=== PATIENT | female | born 1955 | race African-American/Black ===

== ENCOUNTER 2020-02-04 17:49 | Emergency (ER) | payer OTHER ==
[~2020-02-04] VITALS: Ht 170.2 cm; Wt 104.3 kg
--- NOTE | ~2020-02-04 | EKG ---
[facility] [place] [address] ELECTROCARDIOGRAM REPORT Name: RAHUL MOORE Room #: REG [facility]#: [id number] Admission: 02/04/20 Attend Phys: Discharge: Date of : 57 Report #: [id number] THIS REPORT FOR: cc: Vandana Duque MD, Ramilo MD Epiphany, Epiphany MD ~ THIS REPORT FOR: //name// Default Test Date: 2020-02-04 Test Time: 18:54:05 Pat Name: RAHUL MOORE Department: Room: Gender: F Insurance Claim Representative: Rodrick : 1955 Requested By: Kwabena Cartagena Order Number: [id number] MD: Measurements Intervals [place] Rate: 71 P: 66 [place]: 139 QRS: 44 QRSD: 97 T: 40 QT: 422 QTc: 459 Interpretive Statements Sinus rhythm Probable left atrial enlargement Borderline ST elevation, anterior leads Baseline wander in lead(s) V2,V6 Compared to ECG 08/08/2006 16:05:01 ST (T wave) deviation now present [email or web address] By: 1854 1854 Epiphany Epiphany, /EPI
--- NOTE | ~2020-02-04 | EMS ---
[address] [address] EMS Patient Care Report Name: RAHUL MOORE Room #: PRE MHarlan#: [id number] Admission: Attend Phys: Discharge: Date of : 57 Report #: [id number] THIS REPORT FOR: //name// Report Transmitted: 02/04/2020 17:30 EMS Care Summary [place], [place]/[facility] Incident [id number] @ 02/04/2020 17:17 Incident Location [address] Patient RAHUL MOORE Female, 64 Years 1955 Patient Address [address] [place] [address] Patient History Asthma,Diabetes,Hypertension (HTN),Stroke/CVA,Hyperlipidemia,Depression,Pancreatitis,Chronic Pain,Constipation,Insomnia, Patient Allergies Penicillin allergy, Patient Medications Lidocaine, Acetaminophen, Oxycodone, Trazodone, Albuterol, Gabapentin, Pantoprazole, Losartan, Depakote, Hydrochlorothiazide (Hctz), Aspirin, Atorvastatin, Sertraline, Chief Complaint ALTERED MENTAL STATUS Disposition Transported No Lights/Fosters Dispatch Reason Sick Person Transported To [address] [address] EMS Patient Care Report Name: RAHUL MOORE Room #: PRE TIFFANY Parkinson#: [id number] Admission: Attend Phys: Discharge: Date of : 57 Report #: [id number] Narrative SCENE: ON ARRIVSL PT FOUND SITTING UPRGHT IN WHEELCHAIR IN ROOM AT ADDRESS PROVIDED. P IS AWAKE AND ALERT WITH A GCS OF 14. STAFF REPORTS PT HAS HAD AN ALTERED MENTATION FOR THE LAST TWO WEEKS. PT IS NORMALLY A&OX3. PT ABLE TO STAND AND SIT ON EMS STRETCHER. PT ANSWERS ALL QUESTIONS WITH "I DON'T KNOW. AMBULANCE: VITALS MONITORED THROUGHOUT TRANSPORT. NO CHANGES IN PT STATUS EN ROUTE Initial Vitals @17:39P: 76,R: 20,BP: 142/104,Pain: 0/10,GCS: 14,Glucose: 232,Revised Trauma: 12, @17:41P: 82,R: 18,BP: 173/94,Pain: 0/10,GCS: 14,Revised Trauma: 12, @17:31P: 74,R: 18,Pain: 0/10,GCS: 14,Revised Trauma: 12, Assessments @17:33MENTAL:Confused,Person Oriented,SKIN:No Abnormalities,HEENT:Head/Face: No Abnormalities,Eyes: No Abnormalities,Neck/Airway: No Abnormalities,LUNG SOUNDS:General: No Abnormalities,Left Upper: No Abnormalities,Right Upper: No Abnormalities,Left Lower: No Abnormalities,Right Lower: No Abnormalities,ABDOMEN:General: No Abnormalities,Left Upper: No Abnormalities,Right Upper: No Abnormalities,Left Lower: No Abnormalities,Right Lower: No Abnormalities,PELVIS//GI:No Abnormalities,EXTREMITIES:Left Arm: No Abnormalities,Right Arm: No Abnormalities,Left Leg: No Abnormalities,Right Leg: No Abnormalities,PULSE:NEURO:No Abnormalities,@17:45MENTAL:Confused,Person Oriented,SKIN:No Abnormalities,HEENT:Head/Face: No Abnormalities,Eyes: No Abnormalities,Neck/Airway: No Abnormalities,LUNG SOUNDS:General: No Abnormalities,Left Upper: No Abnormalities,Right Upper: No Abnormalities,Left Lower: No Abnormalities,Right Lower: No Abnormalities,ABDOMEN:General: No Abnormalities,Left Upper: No Abnormalities,Right Upper: No Abnormalities,Left Lower: No Abnormalities,Right Lower: No Abnormalities,PELVIS//GI:No Abnormalities,EXTREMITIES:Left Arm: No Abnormalities,Right Arm: No Abnormalities,Left Leg: No Abnormalities,Right Leg: No Abnormalities,PULSE:NEURO:No Abnormalities, Impression Altered Mental Status Procedures @17:34StretcherResponse: Unchanged@17:31ALS AssessmentResponse: UnchangedSucceeded Timeline 17:16,Call Received 17:16,Dispatch Notified 17:17,Dispatched [address] [address] EMS Patient Care Report Name: RAHUL MOORE Room #: PRE ER M.R.#: [id number] Admission: Attend Phys: Discharge: Date of : 57 Report #: [id number] 17:19,En Route 17:26,On Scene 17:31,At Patient 17:31,BP: 164/ M,PULSE: 74,RR: 18 R,SPO2: Ox,ETCO2: ,BG: ,PAIN: 0,GCS: 14, 17:31,ALS Assessment,Response: UnchangedSucceeded, 17:34,Stretcher,Response: Unchanged 17:39,BP: 142/104 M,PULSE: 76,RR: 20 R,SPO2: Ox,ETCO2: ,B,PAIN: 0,GCS: 14, 17:41,BP: 173/94 M,PULSE: 82,RR: 18 R,SPO2: Ox,ETCO2: ,BG: ,PAIN: 0,GCS: 14, 17:42,Depart Scene 17:45,At Destination 18:20,Call Closed Disclaimer v1.1 Copyright 2020 [employer] This EMS Care Summary contains data elements from the applicable legal record (which may be displayed differently). It is designed to provide pertinent information for the following purposes: continuity of care, clinical quality, and state data reporting. The complete legal record is available to ED staff and administrators of the receiving hospital in [facility]'s Patient Tracker. All data is provided "as is."
[2020-02-04] MEDS ORDERED: VITAMIN B-121000 MC2 SUBLING (18:03)
[2020-02-04] MEDS ORDERED: HYDROCHLOROTH12.5 M2 PO (18:03)
[2020-02-04] MEDS ORDERED: LOSARTAN POTAS100 MG PO (18:03)
[2020-02-04] MEDS ORDERED: MILK OF MA400 MG/5 M PO (18:04)
[2020-02-04] MEDS ORDERED: ROXICODONE5 M2 PO (18:05)
[2020-02-04] MEDS ORDERED: PROTONIX40 M2 PO (18:05)
[2020-02-04] MEDS ORDERED: MIRALAX119 GM PO (18:06)
[2020-02-04] MEDS ORDERED: ASPERCREME1 EACH TOP (18:06)
[2020-02-04] MEDS ORDERED: NEURONTIN 400400 M1 PO (18:08)
[2020-02-04] MEDS ORDERED: SERTRALINE HCL100 MG PO (18:09)
[2020-02-04] MEDS ORDERED: ZOLOFT50 M1 PO (18:09)
[2020-02-04] MEDS ORDERED: DEPAKOTE 250MG250 M1 PO (18:10)
[2020-02-04] MEDS ORDERED: TRAZODONE HCL50 MG PO (18:10)
[2020-02-04] MEDS ORDERED: TYLENOL EXTRA500 MG PO (18:10)
[2020-02-04 18:28] LABS: ABSOLUTE NEUTROPHILS 2.9 thou/uL (1.4-8.2); BASOPHILS 0.6 % (0.0-2.0); EOSINOPHILS 3.7 % (0.0-3.0); HEMATOCRIT 46.1 % (37.0-47.0); HEMOGLOBIN 15.8 gm/dL (12.0-15.0); LYMPHOCYTES 32.9 % (24.0-44.0); MCH 29.9 pg (26.0-34.0); MCHC 34.2 g/dL (28.0-37.0); MCV 87.3 fL (80.0-100.0); MONOCYTES 11.4 % (1.0-8.0); POLYS 51.4 % (36.0-66.0); RBC 5.28 mil/uL (4.20-5.00); RDW 13.1 % (10.5-14.5); WBC 5.6 thou/uL (4.0-11.0)
[2020-02-04 18:36] LABS: ANION GAP 2 mmol/L (7-16); BUN 24 mg/dL (7-18); CALCIUM 8.9 mg/dL (8.5-10.1); CHLORIDE 103 mmol/L (98-107); CO2 32 mmol/L (21-32); CREATININE 1.1 mg/dL (0.6-1.0); GLUCOSE 207 mg/dL (74-106); POTASSIUM 4.4 mmol/L (3.5-5.1)
[2020-02-04 18:40] LABS: SODIUM 137 mmol/L (136-145)
[2020-02-04 18:46] LABS: ALBUMIN 2.7 g/dL (3.4-5.0); SGOT 34 U/L (15-37); SGPT 38 U/L (30-65); TOTAL BILIRUBIN 0.4 mg/dL (0.2-1.0); TOTAL PROTEIN 7.5 g/dL (6.4-8.2); TROPONIN-I <0.06 ng/mL (<0.06)
[2020-02-04 18:53] LABS: LARGE PLATELETS RARE; PLATELET COUNT 133 thou/uL (150-400)
[2020-02-04 19:11] LABS: URINE BILIRUBIN NEGATIVE (Negative); URINE BLOOD NEGATIVE (Negative); URINE CLARITY CLEAR; URINE COLOR YELLOW; URINE GLUCOSE-RANDOM* NEGATIVE (Negative); URINE KETONES NEGATIVE (Negative); URINE LEUKOCYTES-REFLEX NEGATIVE (Negative); URINE NITRITE-REFLEX NEGATIVE (Negative); URINE PROTEIN (DIPSTICK) 2+ (Negative); URINE SPECIFIC GRAVITY 1.025 (1.005-1.035)
[2020-02-04 19:18] LABS: AMP/METHAMP Negative (Negative); BARBITURATES Negative (Negative); BENZODIAZEPINES Negative (Negative); COCAINE Negative (Negative); METHADONE Negative (Negative); OPIATES Negative (Negative); PCP Negative (Negative)
[2020-02-04 19:20] LABS: SQUAMOUS 0-3 Few /LPF (0-3); URINE RBC 0-2 Rare /HPF (0-2); URINE WBC-REFLEX 0-5 Rare /HPF (0-5)
[2020-02-04 19:21] LABS: BACTERIA-REFLEX 1-9 Few /HPF (None Seen); CRYSTALS None Seen /LPF (None Seen); HYALINE CASTS 0-3 Few /LPF (None Seen); MUCUS 0-3 Light strn/LPF (None Seen)
[2020-02-04 19:42] VITALS: BP 130/108
== END 2020-02-04 21:37 ==
LOC: ER 17:49
PROVIDERS: Emergency Medicine
DX: G31.84 Mild cognitive impairment of uncertain or unknown etiology (principal); E11.9 Type 2 diabetes mellitus without complications; R51 Headache; M19.90 Unspecified osteoarthritis, unspecified site; E78.5 Hyperlipidemia, unspecified; I10 Essential (primary) hypertension; F32.9 Major depressive disorder, single episode, unspecified; J45.909 Unspecified asthma, uncomplicated; Z79.899 Other long term (current) drug therapy; Z86.73 Personal history of transient ischemic attack (TIA), and cerebral infarction without residual deficits